=== PATIENT | male | born 1995 | race Caucasian/White ===

== ENCOUNTER 2020-05-20 16:57 | Emergency (ER) | payer MEDICARE, MEDICAID ==
[~2020-05-20] VITALS: Ht 170.2 cm; Wt 80.0 kg
[2020-05-20] MEDS ORDERED: OLANZAPINE 10 MG/VIAL IM ONE (19:30)
[2020-05-20] MEDS ORDERED: LORAZEPAM 2MG/ML CPJ IM ONE (19:30)
[2020-05-20 19:46] LABS: BASOPHILS % 0.9 % (0.0-2.0); HEMATOCRIT. 41.6 % (42.0-52.0); HEMOGLOBIN. 14.5 g/dL (14.0-18.0); LYMPHOCYTES % 26.1 % (20.0-50.0); MEAN CORPUSCULAR VOLUME 88.7 fL (80.0-94.0); MEAN PLATELET VOLUME 9.5 fl (7.4-10.4); MONOCYTES % 7.6 % (2.0-8.0); NEUTROPHILS % 60.4 % (40.0-76.0); PLATELET 223 x1000/uL (130-400); RED BLOOD CELL COUNT 4.69 mill/uL (4.7-6.1)
[2020-05-20 20:00] LABS: CHLORIDE 109 mEq/L (98-107)
[2020-05-20 20:06] LABS: ETHANOL BLOOD < 10 mg/dL
[2020-05-20 21:13] LABS: CLARITY URINE CLEAR (CLEAR); COLOR URINE DARK YELLOW (YELLOW); KETONES URINE 3+ (NEGATIVE); LEUKOCYTE ESTERASE URINE TRACE (NEGATIVE); NITRITE URINE NEGATIVE (NEGATIVE); OCCULT BLOOD URINE NEGATIVE (NEGATIVE); PROTEIN URINE 1+ (NEGATIVE); SPECIFIC GRAVITY URINE 1.038 (1.005-1.030)
[2020-05-20 21:23] LABS: *BENZODIAZEPINES SCREEN URINE NEGATIVE (NEGATIVE); *COCAINE SCREEN URINE NEGATIVE (NEGATIVE); CANNABINOID URINE SCREEN PRESUMTIVE POSITIVE (NEGATIVE); METHADONE URINE SCREEN NEGATIVE (NEGATIVE); OPIATES URINE SCREEN NEGATIVE (NEGATIVE); PHENCYCLIDINE URINE SCREEN NEGATIVE (NEGATIVE)
[2020-05-20 21:24] LABS: *AMPHETAMINES SCREEN URINE PRESUMTIVE POSITIVE (NEGATIVE); *BARBITURATES SCREEN URINE NEGATIVE (NEGATIVE)
[2020-05-21] MEDS ORDERED: LORAZEPAM 1MG TABLET PO ONE (13:45)
[2020-05-21 18:25] VITALS: BP 117/68
== END 2020-05-21 18:40 | disposition home or self-care (01) ==
LOC: ER 16:57
DX: R45.851 Suicidal ideations (principal); F31.9 Bipolar disorder, unspecified; F15.10 Other stimulant abuse, uncomplicated
CPT/HCPCS: 36415; 80053; 80305; 80307; 80320; 80329; 81003; 85025; 96372; 99285; J2060; J3490; G0480